=== PATIENT | female | born 1955 | race Caucasian/White ===

== ENCOUNTER 2018-10-24 07:14 | Outpatient (CLI) | payer OTHER ==
[~2018-10-24 07:14] MED LIST: CALCIUM500 M1 PO; CIPRO500 MG PO; COD LIVER OIL1 EACH PO; PERCOCET 5-3251 EACH PO; TRAMADOL HCL50 MG PO
== END 2018-10-24 07:40 | disposition home or self-care (01) ==
LOC: LAB 07:14
DX: D64.89 Other specified anemias (principal); E88.89 Other specified metabolic disorders; D68.8 Other specified coagulation defects; N39.0 Urinary tract infection, site not specified; Z22.322 Carrier or suspected carrier of Methicillin resistant Staphylococcus aureus; Z76.89 Persons encountering health services in other specified circumstances; I49.8 Other specified cardiac arrhythmias

== ENCOUNTER 2018-11-04 11:55 | Outpatient (CLI) | payer OTHER ==
[2018-11-04] MEDS ORDERED: NEURONTIN600 MG PO (14:16)
[2018-11-04] MEDS ORDERED: ADVIL100 MG PO (14:16)
[2018-11-04] MEDS ORDERED: ZANTAC150 M3 PO (14:16)
== END 2018-11-04 12:08 | disposition home or self-care (01) ==
LOC: LAB 11:55
DX: Z22.322 Carrier or suspected carrier of Methicillin resistant Staphylococcus aureus (principal)

== ENCOUNTER 2018-11-07 05:03 | Day surgery (SDC) | payer OTHER ==
[~2018-11-07 05:03] MED LIST changes: +ADVIL100 MG PO; +NEURONTIN600 MG PO; +ZANTAC150 M3 PO
== END 2018-11-07 15:35 | disposition home or self-care (01) ==
LOC: CIR.AMB 05:03
DX: M75.122 Complete rotator cuff tear or rupture of left shoulder, not specified as traumatic (principal); M19.012 Primary osteoarthritis, left shoulder; M65.812 Other synovitis and tenosynovitis, left shoulder

== ENCOUNTER 2019-05-19 07:24 | Outpatient (CLI) | payer OTHER ==
[~2019-05-19 07:24] MED LIST changes: +CYCLOBENZAPRINE10 MG PO; +DICLOFENAC SODI75 MG PO
[2019-05-31] MEDS ORDERED: TURMERIC500 M1 PO (13:42)
[2019-05-31] MEDS ORDERED: MAGNESIUM500 MG PO (13:42)
== END 2019-05-19 15:00 | disposition home or self-care (01) ==
LOC: LAB 07:24
DX: D64.89 Other specified anemias (principal); D68.8 Other specified coagulation defects; E88.89 Other specified metabolic disorders; N39.0 Urinary tract infection, site not specified; Z22.322 Carrier or suspected carrier of Methicillin resistant Staphylococcus aureus; Z76.89 Persons encountering health services in other specified circumstances; I49.8 Other specified cardiac arrhythmias; M25.512 Pain in left shoulder

== ENCOUNTER → 2019-05-29 10:41 | Outpatient (CLI) | payer OTHER ==
[~2019-05-29 10:41] MED LIST changes: +MAGNESIUM500 MG PO; +TURMERIC500 M1 PO
== END | disposition home or self-care (01) ==
LOC: LAB 10:41
DX: N20.0 Calculus of kidney (principal)

== ENCOUNTER → 2019-05-31 | Outpatient (CLI) | payer OTHER | END | disposition home or self-care (01) | LOC: MRI 07:15 | DX: M24.512 Contracture, left shoulder (principal) | CPT/HCPCS: 73222 ==

== ENCOUNTER 2019-06-02 09:16 | Day surgery (SDC) | payer OTHER | END 2019-06-02 17:30 | disposition home or self-care (01) | LOC: CIR.AMB 09:16 | DX: M75.122 Complete rotator cuff tear or rupture of left shoulder, not specified as traumatic (principal); M75.02 Adhesive capsulitis of left shoulder; M19.012 Primary osteoarthritis, left shoulder; M75.52 Bursitis of left shoulder ==

== ENCOUNTER 2019-07-10 05:00 | Day surgery (SDC) | payer OTHER ==
[~2019-07-10 05:00] MED LIST changes: +GLYCOTROL CAPS1 EACH PO; +NEURONTIN300 MG PO; +OSTERA TABLET1 EACH PO; +VOLTAR PO
== END 2019-07-10 12:35 | disposition home or self-care (01) ==
LOC: CIR.AMB 05:00
DX: M24.512 Contracture, left shoulder (principal); M24.612 Ankylosis, left shoulder

== ENCOUNTER 2020-10-10 09:56 | Outpatient (CLI) | payer OTHER | END 2020-10-10 09:59 | disposition home or self-care (01) | LOC: LAB 09:56 | PROVIDERS: ATTEND Orthopaedic Surgery | DX: E55.9 Vitamin D deficiency, unspecified (principal); M85.9 Disorder of bone density and structure, unspecified; E56.1 Deficiency of vitamin K ==

== ENCOUNTER 2024-10-18 13:22 | Outpatient (CLI) | payer OTHER | END 2024-10-18 13:25 | disposition home or self-care (01) | LOC: RAD 13:22 | PROVIDERS: ATTEND Orthopaedic Surgery | DX: M25.561 Pain in right knee (principal); M25.571 Pain in right ankle and joints of right foot ==

== ENCOUNTER → 2024-10-18 | Outpatient (CLI) | payer OTHER | END | disposition home or self-care (01) | LOC: RAD 11:01 | PROVIDERS: ATTEND Orthopaedic Surgery | DX: M25.512 Pain in left shoulder (principal); M25.571 Pain in right ankle and joints of right foot ==

== ENCOUNTER 2024-10-23 08:00 | Outpatient (CLI) | payer OTHER | END 2024-10-23 08:20 | disposition home or self-care (01) | LOC: MRI 08:00 | PROVIDERS: ATTEND Orthopaedic Surgery | DX: M25.512 Pain in left shoulder (principal) | CPT/HCPCS: 73219; Q9965; 73222 ==

== ENCOUNTER 2024-11-23 11:20 | Outpatient (CLI) | payer OTHER | END 2024-11-23 11:21 | disposition home or self-care (01) | LOC: RAD 11:20 | PROVIDERS: ATTEND Orthopaedic Surgery | DX: M23.91 Unspecified internal derangement of right knee (principal); M25.512 Pain in left shoulder; M25.561 Pain in right knee; M25.571 Pain in right ankle and joints of right foot; M76.821 Posterior tibial tendinitis, right leg | CPT/HCPCS: 73718 ==

== ENCOUNTER 2024-11-30 14:56 | Outpatient (CLI) | payer OTHER ==
[2024-11-30 15:32] LABS: PH,URINE 5.5 (5.0-8.0); URINE APPEARANCE Clear; URINE BILIRRUBIN Negative (NEGATIVE); URINE BLOOD Negative; URINE COLOR Dark Yellow; URINE GLUCOSE Negative (NEGATIVE); URINE KETONE Negative (NEGATIVE); URINE LEUKOCYTE Small; URINE NITRATE Negative; URINE PROTEIN Trace (NEGATIVE)
[2024-11-30 15:35] LABS: URINE EPITHELIAL CELLS 16.9 uL (0.0-38.8); URINE RBC 10.8 uL (0.0-20.8); URINE WBC 52.7 uL (0.0-23.2)
[2024-12-01] MEDS ORDERED: METFORMIN HCL500 M3 PO (10:39)
[2024-12-01] MEDS ORDERED: BUSPIRONE HCL10 MG PO (10:39)
[2024-12-01] MEDS ORDERED: MELOXICAM15 MG (10:40)
[2024-12-01] MEDS ORDERED: VITAMIN C100 MG (10:41)
[2024-12-01] MEDS ORDERED: COLON HERBAL C1 EACH PO (10:41)
[2024-12-01] MEDS ORDERED: LIGAPLEX (10:41)
== END 2024-11-30 15:03 | disposition home or self-care (01) ==
LOC: LAB 14:56
PROVIDERS: ATTEND Orthopaedic Surgery
DX: N39.0 Urinary tract infection, site not specified (principal); Z22.322 Carrier or suspected carrier of Methicillin resistant Staphylococcus aureus

== ENCOUNTER 2024-12-05 04:47 | Day surgery (SDC) | payer OTHER ==
[2024-12-01 10:25] LABS: BASO % 0.6 % (0.1-1.2); EOS # 0.17 (0.04-0.54); EOS % 3.4 % (0.7-7.0); HEMATOCRIT 40.9 % (34.1-44.9); HEMOGLOBIN 13.9 g/dL (11.2-15.7); LYMPH # 1.08 (1.18-3.74); LYMPH % 21.3 % (19.3-53.1); MONO # 0.34 (0.24-0.82); MONO % 6.7 % (4.7-12.5); NEUT # 3.43 (1.56-6.13); NEUT % 67.8 % (34.0-71.1); PLATELET COUNT 229 K/uL (163-369); RED BLOOD COUNT 4.63 M/uL (3.93-5.22); RED CELL DISTRIBUTION WIDTH 12.7 % (11.6-14.4)
[2024-12-01 10:42] VITALS: BP 135/84
[2024-12-01 10:52] LABS: INR 1.07; PARTIAL THROMBOPLASTIN TIME 30.6 SECONDS (22.0-34.0); PROTHROMBIN TIME 11.6 SECONDS (9.0-11.5)
[2024-12-01 11:00] LABS: COL EPI 125 SECONDS (82-175)
[2024-12-01 11:49] LABS: ALBUMIN 3.8 gm/dL (3.4-5.0); BILIRUBIN TOTAL 0.76 mg/dL (0.3-1.2); CALCIUM 9.7 mg/dL (8.5-10.1); CREATININE SERUM 0.59 mg/dL (0.55-1.02); GFR 100.77; GLOBULINA 3.4 G/DL (2.4-3.5); POTASSIUM 4.04 mEq/L (3.5-5.1); TOTAL PROTEIN 7.2 gm/dL (6.4-8.2)
[~2024-12-05] VITALS: Ht 154.9 cm; Wt 71.7 kg
[~2024-12-05 04:47] MED LIST changes: +BUSPIRONE HCL10 MG PO; +COLON HERBAL C1 EACH PO; +LIGAPLEX; +MELOXICAM15 MG; +METFORMIN HCL500 M3 PO; +VITAMIN C100 MG
[2024-12-05] MEDS ORDERED: BUPIVACAINE HCL/MPF 0.5% 30ML VIAL ONE (06:34)
[2024-12-05] MEDS ORDERED: CEFAZOLIN SODIUM 1,000 MG VIAL ONE (06:54)
[2024-12-05] MEDS ORDERED: BUPIVACAINE HCL 30 ML VIAL IJ ONE (07:30)
[2024-12-05] MEDS ORDERED: CEFAZOLIN SODIUM 1,000 MG VIAL IV ONE (07:30)
== END 2024-12-05 15:20 | disposition home or self-care (01) ==
LOC: CIR.AMB 04:47
PROVIDERS: ATTEND Orthopaedic Surgery
DX: M66.361 Spontaneous rupture of flexor tendons, right lower leg (principal); T84.84XA Pain due to internal orthopedic prosthetic devices, implants and grafts, initial encounter; Z91.013 Allergy to seafood

== ENCOUNTER 2025-03-19 13:38 | Outpatient (CLI) | payer OTHER | END 2025-03-19 13:46 | disposition home or self-care (01) | LOC: RAD 13:38 | PROVIDERS: ATTEND Orthopaedic Surgery | DX: M66.371 Spontaneous rupture of flexor tendons, right ankle and foot (principal) ==

== ENCOUNTER 2025-04-30 11:08 | Outpatient (CLI) | payer OTHER | END 2025-04-30 11:09 | disposition home or self-care (01) | LOC: NUCLEAR 11:08 | PROVIDERS: ATTEND Orthopaedic Surgery | DX: M81.0 Age-related osteoporosis without current pathological fracture (principal) ==

== ENCOUNTER 2025-05-03 08:51 | Outpatient (CLI) | payer OTHER | END 2025-05-03 08:53 | disposition home or self-care (01) | LOC: RAD 08:51 | PROVIDERS: ATTEND Orthopaedic Surgery | DX: M25.512 Pain in left shoulder (principal) ==

== ENCOUNTER 2025-05-29 06:43 | Outpatient (CLI) | payer OTHER ==
[2025-05-29 08:37] LABS: CREATININE SERUM 0.63 mg/dL (0.55-1.02)
== END 2025-05-29 06:44 | disposition home or self-care (01) ==
LOC: LAB 06:43
PROVIDERS: ATTEND Orthopaedic Surgery
DX: E55.9 Vitamin D deficiency, unspecified (principal); M85.9 Disorder of bone density and structure, unspecified; E56.1 Deficiency of vitamin K; N19 Unspecified kidney failure

== ENCOUNTER 2025-05-29 07:55 | Outpatient (CLI) | payer OTHER | END 2025-05-29 07:56 | disposition home or self-care (01) | LOC: RAD 07:55 | PROVIDERS: ATTEND Orthopaedic Surgery | DX: M25.551 Pain in right hip (principal) ==

== ENCOUNTER 2025-06-01 08:27 | Outpatient (CLI) | payer OTHER | END 2025-06-01 08:30 | disposition home or self-care (01) | LOC: MRI 08:27 | PROVIDERS: ATTEND Orthopaedic Surgery | DX: M75.112 Incomplete rotator cuff tear or rupture of left shoulder, not specified as traumatic (principal) | CPT/HCPCS: 73219; Q9965; 73222 ==